=== PATIENT | male | born 1985 | race African-American/Black ===

== ENCOUNTER 2016-05-31 17:12 | Emergency (ER) | payer OTHER ==
[~2016-05-31] VITALS: Ht 170.2 cm; Wt 63.5 kg
[2016-05-31] MEDS ORDERED: KETOROLAC TROMETHAMINE 60 MG/2 ML VIAL IM ONE (20:00)
[2016-05-31] MEDS ORDERED: METHOCARBAMOL 500 MG TABLET PO ONE (20:00)
[2016-05-31 20:54] VITALS: BP 138/97
== END 2016-05-31 20:59 | disposition home or self-care (01) ==
LOC: EMS 17:15
DX: S16.1XXA Strain of muscle, fascia and tendon at neck level, initial encounter (principal); F17.200 Nicotine dependence, unspecified, uncomplicated; V49.88XA Car occupant (driver) (passenger) injured in other specified transport accidents, initial encounter; Y93.89 Activity, other specified; Y92.413 State road as the place of occurrence of the external cause; Y99.9 Unspecified external cause status
CPT/HCPCS: 96372; 99283; J1885

== ENCOUNTER 2016-06-06 10:58 | Emergency (ER) | payer OTHER ==
[~2016-06-06] VITALS: Ht 160 cm; Wt 59.1 kg
[2016-06-06 11:12] VITALS: BP 133/91
== END 2016-06-06 12:10 | disposition home or self-care (01) ==
LOC: EMS 10:59
DX: T14.8 Other injury of unspecified body region (principal); Z02.89 Encounter for other administrative examinations; F17.200 Nicotine dependence, unspecified, uncomplicated
CPT/HCPCS: 99281

== ENCOUNTER 2017-05-03 12:13 | Emergency (ER) | payer OTHER ==
[~2017-05-03] VITALS: Ht 170.2 cm; Wt 63.5 kg
[2017-05-03 14:23] VITALS: BP 148/93
[2017-05-03] MEDS ORDERED: METHOCARBAMOL 500 MG TABLET PO ONE (14:30)
[2017-05-03] MEDS ORDERED: IBUPROFEN 600 MG TABLET PO ONE (14:30)
== END 2017-05-03 15:05 | disposition home or self-care (01) ==
LOC: EMS 12:15
DX: S16.1XXA Strain of muscle, fascia and tendon at neck level, initial encounter (principal); R07.2 Precordial pain; Y92.410 Unspecified street and highway as the place of occurrence of the external cause; F17.200 Nicotine dependence, unspecified, uncomplicated; V89.2XXA Person injured in unspecified motor-vehicle accident, traffic, initial encounter; Y93.89 Activity, other specified; Y99.8 Other external cause status
CPT/HCPCS: 99283

== ENCOUNTER 2018-10-02 10:14 | Emergency (ER) | payer OTHER ==
[~2018-10-02] VITALS: Ht 170.2 cm; Wt 64.5 kg
[2018-10-02] MEDS ORDERED: IBUPROFEN 600 MG TABLET PO ONE (10:30)
[2018-10-02 11:36] VITALS: BP 114/67
== END 2018-10-02 11:45 | disposition home or self-care (01) ==
LOC: EMS 10:16
DX: S90.31XA Contusion of right foot, initial encounter (principal); F12.90 Cannabis use, unspecified, uncomplicated; F17.210 Nicotine dependence, cigarettes, uncomplicated; W18.39XA Other fall on same level, initial encounter; Y93.67 Activity, basketball; Y92.89 Other specified places as the place of occurrence of the external cause; Y99.8 Other external cause status

== ENCOUNTER 2018-10-04 10:08 | Emergency (ER) | payer OTHER ==
[~2018-10-04] VITALS: Ht 170.2 cm; Wt 64.5 kg
[2018-10-04 10:09] VITALS: BP 123/77
== END 2018-10-04 11:55 | disposition home or self-care (01) ==
LOC: EMS 10:09
DX: S90.31XD Contusion of right foot, subsequent encounter (principal); F12.90 Cannabis use, unspecified, uncomplicated; F17.290 Nicotine dependence, other tobacco product, uncomplicated; Y93.39 Activity, other involving climbing, rappelling and jumping off

== ENCOUNTER 2023-09-20 09:39 | Emergency (ER) | payer OTHER, MEDICAID ==
[~2023-09-20] VITALS: Ht 167.6 cm; Wt 62.7 kg
[2023-09-20 10:01] VITALS: TEMP 98.3
[2023-09-20] MEDS: METHOCARBAMOL 500 MG TABLET PO ONE (11:25)
[2023-09-20] MEDS: IBUPROFEN 600 MG TABLET PO ONE (11:26)
[2023-09-20 11:30] VITALS: BP 126/70; PULSE 76; RESP 18
[2023-09-20] MEDS ORDERED: IBUP-1554 PO (11:49)
[2023-09-20] MEDS ORDERED: METH-812 PO (11:49)
== END 2023-09-20 12:17 | disposition home or self-care (01) ==
LOC: EMS 09:39
DX: S46.811A Strain of other muscles, fascia and tendons at shoulder and upper arm level, right arm, initial encounter (principal); V89.2XXA Person injured in unspecified motor-vehicle accident, traffic, initial encounter; Y93.89 Activity, other specified; Y92.89 Other specified places as the place of occurrence of the external cause; Y99.8 Other external cause status
CPT/HCPCS: 99283